=== PATIENT | male | born 1965 | race Caucasian/White ===

== ENCOUNTER 2019-12-26 13:00 | Observation (INO) | payer BC, SELFPAY ==
[2019-12-26] VITALS (14 sets, daily range): BP systolic 128–161; BP diastolic 69–98; PULSE 97–109; RESP 14–20; TEMP 36.4–37.9; O2SAT 94–98; BMI 41.7
--- NOTE | ~2019-12-26 | US_ITS ---
EXAMINATION: US venous doppler [facility] DATE: 12/27/2019 11:58 INDICATION: Chest pain. TECHNIQUE: Grayscale ultrasound images without and with compression and Doppler ultrasound images of the bilateral lower extremity veins were obtained. COMPARISON: None. FINDINGS: The visualized portions of right common femoral vein, profunda (deep) femoral vein, femoral vein, pop liteal vein, peroneal veins, posterior tibial veins, and greater saphenous vein outflow are patent. The visualized portions of left common femoral vein, profunda femoral vein, femoral vein, popliteal v ein, peroneal veins, posterior tibial veins, and greater saphenous vein outflow are patent. IMPRESSION: 1. No deep venous thrombosis. Reviewed, dictated and finalized at location A.
--- NOTE | ~2019-12-26 | CT_ITS ---
EXAMINATION: CTA chest PE protocol DATE: 12/26/2019 15:06 CDT INDICATION: Fever, pleuritic chest pain and cough TECHNIQUE: Computed tomographic angiography (CTA) of the chest was performed with 100 mL Omnipaque-35 0 intravenous contrast. The dose-length product was 985.86 mGy-cm. Maximum intensity projection 3D-re constructions of the aorta and other arteries were constructed by the technologist on a separate work station. COMPARISON: None. FINDINGS: Study is technically adequate. There is pulmonary embolism involving the right upper and bi lateral lower lobe segmental and subsegmental pulmonary arteries. There is also thrombus in the lingu lar artery. Small right pleural effusion. Heart size normal. No evidence for aortic aneurysm or disse ction. No thoracic lymphadenopathy. Calcified granuloma left lower lobe. Focal airspace disease right lower lobe. There is a 5 mm right lower lobe nodule, image 61. No endobronchial lesions. IMPRESSION: 1. Bilateral pulmonary embolism, moderate thrombus burden. 2: Right lower lobe airspace disease may represent atelectasis, pulmonary infarction or pneumonia. 3: Small right pleural effusion. 4.: 5 mm right lower lobe nodule, likely benign. Twelve-month interval follow-up CT chest recommended . Dr. Spears discussed with Dr. Sophia Lang MD at 12/26/2019 15:08 CDT. Reviewed, dictated and finalized at location A. IMPRESSION: 1. Bilateral pulmonary embolism, moderate thrombus burden. 2: Right lower lobe airspace disease may represent atelectasis, pulmonary infa rction or pneumonia. 3: Small right pleural effusion. 4.: 5 mm right lower lobe nodule, likely benign. Twelve-month interval follow-u p CT chest recommended. Dr. Spears discussed with Dr. Sophia Lang MD at 12/26/2019 15:08 CDT.
--- NOTE | ~2019-12-26 | CT_ITS ---
EXAMINATION: CT BRAIN W/O DATE: 12/26/2019 14:48 INDICATION: Weakness and fever TECHNIQUE: Computed tomography (CT) of the head was performed without intravenous contrast. The dose- length product was 605.33 mGy-cm. The mA was adjusted according to patient size. Iterative reconstruc tion technique was employed. COMPARISON: No prior studies for comparison. FINDINGS: Normal brain parenchymal volume for age. Normal claire-white differentiation. No acute intrac ranial hemorrhage, infarction, mass or mass effect. No ventriculomegaly or midline shift. Midline sagittal images demonstrate a normal corpus callosum, c raniovertebral junction and sella turcica. Basilar cisterns are patent. Paranasal sinuses and mastoids are pneumatized. No depressed skull fractures. IMPRESSION: 1. No acute intracranial abnormality. Reviewed, dictated and finalized at location A.
--- NOTE | 2019-12-26 13:44 | ECG_ITS ---
Measurements Intervals [place] Rate: 111 P: 49 ME: 148 QRS: 22 QRSD: 87 T: 17 QT: 306 QTc: 417 Interpretive Statements SINUS TACHYCARDIA DELAYED PRECORDIAL R/S TRANSITION NONSPECIFIC T-WAVE ABNORMALITY- INFERIOR LEADS BASELINE ARTIFACT- I, III, AVR, AVL ABNORMAL ECG Electronically Signed On 12-26-2019 14:15:40 CDT by Branden To D.O.
--- NOTE | 2019-12-26 13:46 | ED.GENADULT ---
HPI - General Adult General Chief complaint: Weakness Stated complaint: WEAKNESS X 7WKS Time Seen by Provider: 12/26/19 13:08 Source: patient Mode of arrival: ambulatory Limitations: no limitations History of Present Illness HPI narrative: Patient is a 54-year-old male who presents for evaluation of fever, weakness over the past several weeks. Patient states approximately 7 weeks ago, he had right rotator cuff surgery at an outpatient facility, and 3 days after, developed a fever and chills. Patient states he has had intermittent, fevers of 100 Fahrenheit up to 104 Fahrenheit over the past several weeks, although they have somewhat decreased in frequency, typically only occurring once a day. Patient has been able to take Tylenol to decrease the fever, but states he usually returned the next day. He reports a dry cough, and chest pain that is especially worse with coughing. No chest pain at rest, no pressure overlying his chest. He reports his pain is exacerbated by taking a deep breath. He reports sinus congestion and drainage. Patient states he had follow-up with his orthopedic surgeon and a negative joint aspirate of the right shoulder, and had blood work done by his primary care physician which was normal. Patient denies recent travel, exposure to ticks, no urinary symptoms or abdominal pain. No rashes. Patient states he was tested for coronavirus and had a negative test. Patient states he feels weak, fatigues easily, and sought care due to concern system fevers. Related Data Home Medications Medication Instructions Recorded Confirmed levothyroxine 12/26/19 terbinafine HCl mg 12/26/19 Allergies Allergy/AdvReac Type Severity Reaction Status Date / Time No Known Allergies Allergy Mild Verified 12/26/19 13:15 Review of Systems Review of Systems: Narrative: CONSTITUTIONAL: Reports fever, chills and diaphoresis EYES: Denies visual changes, redness, or discharge. ENT: Reports sinus congestion and drainage CARDIOVASCULAR: Reports chest pain with inspiration, denies palpitations or edema RESPIRATORY: Reports cough, denies shortness of breath GASTROINTESTINAL: Denies abdominal pain, nausea, vomiting, or diarrhea. GENITOURINARY: Denies dysuria or hematuria. SKIN: Denies rash or itching. MUSCULOSKELETAL: Denies back pain, joint pain, reports myalgias NEUROLOGIC: Denies headache, numbness, reports feeling weak PMFSH Past Medical History Medical History (Updated 12/26/19 @ 15:17 by Sophia Lang MD) Cervical strain Surgical History Surgical History (Updated 12/26/19 @ 13:49 by Spohia Lang MD) H/O rotator cuff surgery Social History Social History (Updated 12/26/19 @ 13:49 by Sophia Lang MD) Smoking status: Never smoker Alcohol intake: current Substance use: never Gender identity (if verbalized by the patient): Male Exam Narrative: Exam Narrative: GENERAL: Awake, alert, conversant HEAD: Normocephalic, atraumatic. EYES: PERRLA and EOMI. ENT: Nares clear, no rhinorrhea or epistaxis. Mucous membranes moist. NECK: Supple. CHEST: No respiratory distress, breathing even and non labored HEART: Tachycardic rate, sinus rhythm ABDOMEN:Non distended, non tender EXTREMITIES: Normal range of motion. No edema. SKIN: Warm, dry, no rash. NEURO:No focal deficits. Alert and oriented x3 Course Vital Signs Vital signs: Vital Signs Temperature 37.9 C H 12/26/19 13:10 Pulse Rate 109 H 12/26/19 13:10 Respiratory Rate 20 12/26/19 13:10 Blood Pressure 161/98 H 12/26/19 13:10 Pulse Oximetry 98 12/26/19 13:10 Temperature 37.9 C H 12/26/19 13:10 Pulse Rate 109 H 12/26/19 13:10 Respiratory Rate 20 12/26/19 13:10 Blood Pressure 142/77 H 12/26/19 14:31 Pulse Oximetry 97 12/26/19 14:58 Medical Decision Making MDM Narrative Medical decision making narrative: Pt presented for evaluation of intermittent fever, fatigue, and found to also have chest pain on exam that see
[2019-12-26] MEDS: ACETAMINOPHEN 500 MG TABLET 1000 MG PO (13:52)
[2019-12-26] MEDS: SODIUM CHLORIDE 0.9% IV 1,000 ML 999 ML IV CONT (13:52)
[2019-12-26 14:02] LABS: Basophils Absolute Auto 0.1 K/mm3 (0.0-0.1); Basophils Percent Auto 0.6 % (0.2-1.2); Eosinophils Percent Auto 0.5 % (0-4.4); Hematocrit 41.5 % (42.0-52.0); Hemoglobin 13.5 g/dL (14.0-18.0); Immature Granulocyte Absolute 0.03 K/mm3 (0.00-0.031); Immature Granulocyte Percent A 0.4 % (0-0.5); Lymphocytes Absolute Auto 1.38 K/mm3 (0.9-3.2); Lymphocytes Percent Auto 17.7 % (18.3-44.2); Mean Corpuscular HGB Conc 32.5 g/dl (32-36); Mean Corpuscular Volume 92.2 fl (80-100); Mean Platelet Volume 9.1 fl (7.4-10.4); Monocytes Absolute Auto 0.9 K/mm3 (0.1-0.6); Monocytes Percent Auto 10.9 % (2.6-8.5); Neutrophils Absolute Auto 5.4 K/mm3 (1.3-6.7); Neutrophils Percent Auto 69.9 % (45.5-73.1); Platelet Count Result 327 k/mm3 (150-375); Red Cell Distribution Width 14.2 % (11.5-14.5); White Blood Count 7.8 K/mm3 (4.5-10.0)
[2019-12-26 14:05] LABS: Add Urine Microscopic? YES; Appearance Urine Clear (Clear); Bacteria Urine Trace /hpf; Bilirubin Urine Negative (Negative); Blood Urine Negative (Negative); Color Urine Yellow (Yellow); Glucose Urine UA Negative (Negative); Ketones Urine Trace mg/dL (Negative); Leukocyte Esterase Ur Negative LEU/UL (Negative); Mucus Urine Few /lpf; Nitrate Urine Negative (Negative); Protein Urine 1+ mg/dL (Negative); RBC Urine 0-2 /hpf (0-2); Specific Grav Ur 1.023 (1.001-1.035)
[2019-12-26 14:13] LABS: INR 1.2; Lactic Acid Reflex 1.7 mmol/L (0.7-2.1); Prothrombin Time 14.8 Seconds (11.1-14.7)
[2019-12-26 14:14] LABS: Partial Thromboplastin Time 31.6 SECONDS (22.3-36.8)
[2019-12-26 14:22] LABS: Lactate Dehydrogenase 498 U/L (313-618); NT Pro B Type Natriuretic Pept 30 PG/ML (5-100)
[2019-12-26 14:24] LABS: Troponin I < 0.012 ng/mL (0.000-0.034)
[2019-12-26 14:33] LABS: Erythrocyte Sedimentation Rate 54 mm/hr (0-20)
[2019-12-26 14:38] LABS: Estimated CRCL calculation 87 ml/min; Estimated Glomerular Filt Rate > 60
[2019-12-26 14:53] LABS: Monoscreen Negative (Negative); Negative Monotest Control Negative (Negative); Positive Monotest Control Positive (Positive)
[2019-12-26] MEDS: HEPARIN SODIUM 5,000 UNITS/ML VIAL 7500 UNITS IV PUSH (16:05)
[2019-12-26] MEDS: HEPARIN SOD/D5W 100 UNITS/ML 25,000 UNITS/250 ML BAG 15 UNITS IV CONT (16:06)
--- NOTE | 2019-12-26 16:45 | PM.IMHP ---
H&P: HPI History of Present Illness Chief complaint: Cough and weakness. Narrative: Freddie ?Dilip Alfaro is a 54-year-old male with hypothyroidism who presented to the emergency department earlier this afternoon from home for evaluation of cough and weakness. It is somewhat difficult to follow the history that he gives me, and despite repeated clarification, he continues to have contraindications in his time lines. From what I can gather, he had a right rotator cuff repair done on November 09, 2019 in [place] and three days thereafter he began having chills, shakes, and a fever. Reportedly he had a fever 12 hours a day for 3 straight weeks, with a Tmax of 104? as well as diffuse myalgias and arthralgias. He had no other symptoms which would point to a specific etiology, and thus his right shoulder was aspirated given his recent surgery, and that reportedly yielded nothing. He was tested for COVID-19 on November 19 and that was negative. For unclear reasons, he was prescribed a Z-Bro around this time which he completed and he denies benefit from taking that. During those 3 weeks, he admits that he was ?curled up in bed? a majority of the day and had a very poor appetite. I lost a lot of muscle mass and some weight during that time. After 3 weeks, his temperature become less frequent with only a low-grade fever last week and he has not needed to take Tylenol for nearly 1 weeks time. About 5 days ago he developed a cough productive of clear phlegm, and it sounds as though he has severe coughing jags to the point where he has posttussive emesis. He has since been having right anterior/lateral pleuritic chest pain, which he initially blamed on the coughing and a muscle strain. He got the okay to return back to work today, and he tells me that working these past 2 days has just worn him out and he is feeling very weak. Due to reports of pleuritic pain, a CTA of the chest was performed which showed bilateral pulmonary embolism with moderate thrombus burden. He has no history of pulmonary embolism or DVT. He denies recent travel, lower extremity swelling, and calf pain. He does work a desk job, and as mentioned above, he does admit to spending 3 weeks in bed recently due to fevers as detailed above. again, he has not had a fever for over 1 week. He denies headache. No exertional pain, orthopnea, or paroxysmal nocturnal dyspnea. Interestingly, he denies shortness of breath. He has no known history of cancer. Review of Systems Review of Systems: Narrative: Twelve systems were reviewed with pertinent positives and negatives as per HPI. Except as documented, all other systems were reviewed and are negative. [facility] Past Medical History Medical History (Updated 12/26/19 @ 21:03 by Tonya Guerra PA-C) Cervical strain Colon polyps Hypothyroidism Surgical History Surgical History (Updated 12/26/19 @ 21:03 by Tonya Guerra PA-C) History of repair of right rotator cuff (~10/2019) History of tonsillectomy Family History Family History (Updated 12/26/19 @ 21:04 by Tonya Guerra PA-C) Mother Venous thromboembolism Father Carcinoma of colon Grandparent Carcinoma of colon Social History Social History (Updated 12/26/19 @ 21:05 by Tonya Guerra PA-C) Social History: Patient lives in [place] with his . They have 1 son. 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 He designates his , Whit, is his surrogate decision maker and he wishes to be a full code. Spiritual care concerns: No Meds Home Medications and Allergies Home Medications Medication Instructions Recorded Confirmed Type levothyroxine 25 mcg PO QAM 12/26/19 12/26/19 History Allergies Allergy/AdvReac Type Severity Reaction Status Date / Time No Known Allergies Allergy Mild Verified 12/26/19 13:15 Vital Signs Vital Signs - 24 hr 12/26/19 13:10 12/26/19 13:17 12/26/19
--- NOTE | 2019-12-26 17:05 | PC.NURSE ---
This patient, Freddie Alfaro, was admitted to Medical Room 341-01. Patient/family oriented to hospital policies and general routines including ID bracelet, bed and alarms, visiting hours, pain management, procedures, bathroom and other care routines, personal items, smoking policy, room service/diet, and visiting hours. Valuables list has been completed. Information on how to activate the Rapid Response Team has been discussed. Patient/Family are encouraged to report perceived risks to care and to ask questions if they do not understand what they are told or what they should do.
[2019-12-26 22:24] LABS: Partial Thromboplastin Time 110.8 SECONDS (22.3-36.8)
[2019-12-26 22:24] LABS: Alanine Aminotransferase 32 U/L (4-50); Albumin Level 3.7 g/dL (3.5-5.1); Alkaline Phosphatase 98 U/L (38-126); Aspartate Amino Transferase 31 U/L (17-59); Blood Urea Nitrogen 11 mg/dL (9-20); Calcium 8.6 mg/dL (8.4-10.2); Carbon Dioxide 27 mmol/L (22-30); Chloride 103 mmol/L (98-107); Estimated CRCL calculation 94 ml/min; Estimated Glomerular Filt Rate > 60; Glucose 125 mg/dL (75-110); Potassium 3.6 mmol/L (3.4-5.0); Sodium 136 mmol/L (137-145)
[2019-12-27] VITALS: PULSE 93
[2019-12-27 04:06] VITALS: PULSE 97
[2019-12-27 04:51] VITALS: BP 141/77; PULSE 94; RESP 18; TEMP 37.1; O2SAT 96
[2019-12-27 05:32] LABS: Basophils Percent Auto 0.7 % (0.2-1.2); Eosinophils Absolute Auto 0.1 K/mm3 (0-0.3); Eosinophils Percent Auto 1.3 % (0-4.4); Hematocrit 37.2 % (42.0-52.0); Hemoglobin 12.1 g/dL (14.0-18.0); Immature Granulocyte Absolute 0.02 K/mm3 (0.00-0.031); Immature Granulocyte Percent A 0.4 % (0-0.5); Lymphocytes Absolute Auto 1.51 K/mm3 (0.9-3.2); Mean Corpuscular HGB Conc 32.5 g/dl (32-36); Mean Corpuscular Hemoglobin 29.5 pg (26-34); Mean Corpuscular Volume 90.7 fl (80-100); Mean Platelet Volume 9.1 fl (7.4-10.4); Monocytes Absolute Auto 0.7 K/mm3 (0.1-0.6); Neutrophils Absolute Auto 3.1 K/mm3 (1.3-6.7); Neutrophils Percent Auto 57.6 % (45.5-73.1); Platelet Count Result 269 k/mm3 (150-375); Red Cell Distribution Width 14.1 % (11.5-14.5); White Blood Count 5.4 K/mm3 (4.5-10.0)
[2019-12-27 05:34] LABS: Blood Urea Nitrogen 11 mg/dL (9-20); Calcium 8.7 mg/dL (8.4-10.2); Carbon Dioxide 24 mmol/L (22-30); Chloride 102 mmol/L (98-107); Estimated CRCL calculation 94 ml/min; Estimated Glomerular Filt Rate > 60; Glucose 107 mg/dL (75-110); Potassium 3.8 mmol/L (3.4-5.0); Sodium 134 mmol/L (137-145)
[2019-12-27 05:40] LABS: Partial Thromboplastin Time 76.1 SECONDS (22.3-36.8)
[2019-12-27] MEDS: LEVOTHYROXINE SODIUM 25 MCG TABLET PO (06:43)
[2019-12-27 08:00] VITALS: PULSE 100
[2019-12-27 08:21] LABS: Total Triiodothyronine (T3) 1.01 NG/ML (0.97-1.69)
--- NOTE | 2019-12-27 10:51 | PM.IMPN ---
Progress Note: A&P Assessment and Plan (1) Bilateral pulmonary embolism: Code(s): I26.99 - Other pulmonary embolism without acute cor pulmonale Status: Acute Assessment and Plan: Chest CTA shows bilateral pulmonary embolism with moderate clot burden. This is likely due to a DVT which was probably provoked by his prolonged period of immobility as he was in bed for 3 weeks. He reports he had a colonoscopy within the past year with two polyps which were removed. He is a non-smoker. Heparin gtt was initiated. Care coordination is on board and eliquis is covered by his insurance. Await venous doppler US to r/o DVT Await echo Continue heparin gtt and transition to eliquis this evening Continue to monitor (2) Right lower lobe pulmonary infiltrate: Code(s): R91.8 - Other nonspecific abnormal finding of lung field Status: Acute Assessment and Plan: Right lower lobe airspace disease was noted on CTA which could include atelectasis, pulmonary infarction, or pneumonia. This may be secondary to pulmonary infarction due to his PE as he is having right sided pleuritic discomfort. Additionally, he may very well have had pneumonia given reported 3 weeks of fever, however those have since resolved and thus antibiotics are not indicated at this time. Continue to monitor and treat PE as above (3) Hypothyroidism: Qualifiers: Hypothyroidism type: unspecified Qualified Code(s): E03.9 - Hypothyroidism, unspecified Code(s): E03.9 - Hypothyroidism, unspecified Status: Acute Assessment and Plan: TSH is elevated at 6.290 but free T4 is 1.00 and total T3 1.01 suggesting subclinical hypothyroidism. Continue levothyroxine (4) Right lower lobe pulmonary nodule: Code(s): R91.1 - Solitary pulmonary nodule Status: Acute Assessment and Plan: Chest CTA revealed a 5 millimeter right lower lobe nodule. He will need a twelve month interval follow-up CT of the chest outpatient per his PCP Time Spent With Patient Time with patient: 15 - 25 minutes Subjective Date/time seen: 12/27/19 10:51 Interval history: Mr. Alfaro is seen and examined at bedside. He reports that he continues to have persistent, although less frequent, cough with clear sputum. He denies associated sinus pressure and runny nose. He reports that his pleuritic discomfort has improved significantly. He denies dyspnea and chest pain. He denies palpitations. He denies nausea, vomiting, and abdominal pain. He denies any further subjective fevers or chills. He reports that he is tolerating PO intake well. He has no concerns regarding voiding. He denies headache, dizziness, and lightheadedness. Review of Systems Review of Systems: All systems reviewed & are unremarkable except as noted in HPI and below Exam Narrative: Exam Narrative: General: Well-developed and well-nourished 54 y.o. male who is pleasant, cooperative, and in no acute distress. He is non-toxic in appearance. HEENT: Normocephalic and atraumatic. Conjunctivae and lids normal. PERRL. EOMI. Left ear canal with cerumen and right ear canal with clear TM. Mucous membranes are moist. Posterior pharynx without erythema or purulence. Neck: Supple without lymphadenopathy or masses. Cardiac: Regular rate and rhythm. S1 and S2 normal. No murmur appreciated. No carotid bruits. Lungs:Effort normal. Lungs are clear to auscultation bilaterally and breath sounds are decreased on the right lower lobe. Abdomen: Bowel sounds normoactive. Abdomen is soft, non-distended, and non-tender. Extremities: No lower extremity edema bilaterally. Estella sign negative. Palpable DP and PT bilaterally. Neurological: Alert. No focal neurological deficits noted. Speech is clear. Skin: Warm and dry. Psychiatric: Judgment and insight intact. Mood pleasant and affect normal. Objective Data Vital Signs Vital Signs: Vital Signs - 24 hr 12/26/19 13:10
[2019-12-27] MEDS: HEPARIN SOD/D5W 100 UNITS/ML 25,000 UNITS/250 ML BAG 13 UNITS IV CONT (10:55)
[2019-12-27 12:00] VITALS: PULSE 100
[2019-12-27 12:08] VITALS: BMI 41.7
[2019-12-27 12:30] LABS: Partial Thromboplastin Time 51.1 SECONDS (22.3-36.8)
[2019-12-27] MEDS: HEPARIN SODIUM 5,000 UNITS/ML VIAL 7500 UNITS IV PUSH (12:34)
[2019-12-27 14:00] VITALS: BP 152/90; PULSE 100; RESP 18; TEMP 36.6; O2SAT 99
--- NOTE | 2019-12-27 15:14 | PM.DS ---
DS: Admitting Diagnosis Admitting Diagnosis Admitting Diagnosis: Other pulmonary embolism without acute cor pulmonale DS: Discharge Diagnosis Discharge Diagnosis (1) Bilateral pulmonary embolism: Code(s): I26.99 - Other pulmonary embolism without acute cor pulmonale Status: Acute (2) Right lower lobe pulmonary infiltrate: Code(s): R91.8 - Other nonspecific abnormal finding of lung field Status: Acute (3) Hypothyroidism: Qualifiers: Hypothyroidism type: unspecified Qualified Code(s): E03.9 - Hypothyroidism, unspecified Code(s): E03.9 - Hypothyroidism, unspecified Status: Chronic (4) Right lower lobe pulmonary nodule: Code(s): R91.1 - Solitary pulmonary nodule Status: Acute DS: Summary Hospital Course Reason for hospitalization: Cough, pleuritic pain, weakness Hospital Course: Mr. Alfaro is a 54 y.o. male with PMH significant for hypothyroidism who presented to the ED with a c/o weakness, cough, and pleuritic chest pain. He reported that he had a right rotator cuff repair 10/2019. Subsequently, he developed fevers, myalgias, arthralgias, and weakness and was in bed for most of that time. He reports that a source of infection was never identified. He reports that his orthopedist attempted right shoulder aspiration which yielded nothing and his COVID testing was negative. He completed a course of azithromycin with no improvement. He reports that his fever became less frequent and he had not taken tylenol since. He reported cough with clear sputum. He also reported right sided pleuritic pain. Initial workup in the ED revealed WBC 7,800, Hb 13.5, Hct 41.5, platelets 327, sodium 136, Cr 1.1, BUN 11, LFT unremarkable, troponin <0.012. CTA chest was performed which revealed bilateral pulmonary embolism with moderate clot burden. Heparin gtt was initiated. Right lower lobe airspace disease was noted on CTA which could include atelectasis, pulmonary infarction, or pneumonia. This is likely secondary to pulmonary infarction due to his PE as he is having right sided pleuritic discomfort. He was admitted to the hospitalist service for further evaluation and management. He was transitioned to eliquis this afternoon. Venous dopplers were negative for DVT but it is possible that he had a DVT which mobilized and was provoked but his period of immobility. He reports that he is up to date on his screening colonoscopy and had no prior hx of venous thromboembolism. Echo revealed normal systolic function, estimated at 60-65%, with no evidence of pulmonary hypertension. Telemetry was reviewed and revealed sinus rhythm with occasional sinus tachycardia. TSH was elevated at 6.290 but free T4 is 1.00 and total T3 1.01 suggesting subclinical hypothyroidism. Chest CTA revealed a 5 millimeter right lower lobe nodule and he will need a twelve month interval follow-up CT of the chest outpatient per his PCP which I discussed with the patient. He had a temperature of 100.2F at presentation and remained afebrile. He requested to go home and was discharged in stable condition on the afternoon of 12/27/2019. He was instructed to follow-up with his PCP for further refills of eliquis and for a post-op follow-up. Status at Discharge Functional status at discharge: independent ambulation Overall status at discharge: patient is back to baseline Time Spent with Patient Time attestation: Total time spent providing and/or coordinating discharge services: 40 minutes Exam Narrative: Exam Narrative: Vitals at admission: Temp Pulse Resp BP Pulse Ox 100.2 F H 109 H 20 161/98 H 98 12/26/19 13:10 12/26/19 13:10 12/26/19 13:10 12/26/19 13:10 12/26/19 13:10 Vitals at discharge: Temp Pulse Resp BP Pulse Ox 97.9 F 100
[2019-12-27] MEDS: APIXABAN 5 MG TABLET 10 MG PO (15:56)
--- NOTE | 2019-12-27 21:11 | ECHO_ITS ---
Patient Info Name: Freddie Alfaro Age: 54 years : 1965 Gender: Male Ht: 68 in Wt: 274 lbs BSA: 2.50 m2 HR: 81 bpm BP: 141 / 77 mmHg Heart Rhythm: Sinus Rhythm Technical Quality: Good Exam Date: 12/27/2019 11:07 AM Exam Location: [facility] Card Pulmonary Patient Status: Inpatient Admit Date: 12/26/2019 Staff Ordering Physician: Tonya Guerra PA-C Piercing Artist: Medardo Carr RDCS Attending Provider: Mckayla Escobar PA-C Referring Physician: Mari PETERS; Exam Type: CA echo doppler color flow Study Info Indications I26.99 - Other pulmonary embolism without acute cor pulmonale Complete two-dimensional, color flow and Doppler transthoracic echocardiogram is performed. History/Risk Factors Bilateral PE w/ moderate clot burden. Summary 1. Left ventricular chamber dimension is normal. 2. Left ventricular systolic function is normal, estimated at 60-65%. 3. There is mildly increased left ventricular wall thickness. 4. The left ventricular diastolic function is normal. 5. E/e' 6 is not elevated. 6. No pulmonary hypertension, estimated pulmonary arterial systolic pressure is 32 mmHg. Left Ventricle E/e' 6 is not elevated. Left ventricular chamber dimension is normal. Left ventricular systolic function is normal, estimated at 60-65%. There is mildly increased left ventricular wall thickness. The left ventricular diastolic function is normal. Right Ventricle Right ventricular chamber dimension is normal. Right ventricular systolic function is normal. Left Atria Left atrial chamber dimension is normal. Right Atria Right atrial chamber dimension is normal. Aortic Valve The aortic valve is trileaflet. There is no aortic valve stenosis. There is no aortic valve regurgitation. Pulmonic Valve There is no pulmonic regurgitation. Mitral Valve There is no mitral valve stenosis. There is no mitral valve regurgitation. Tricuspid Valve There is no tricuspid valve regurgitation. No pulmonary hypertension, estimated pulmonary arterial systolic pressure is 32 mmHg. Pericardium/Pleural There is no pericardial effusion. Inferior Vena Cava Normal inferior vena cava with >50% collapse upon inspiration consistent with normal right atrial pressure, 5 mmHg. Aorta The aortic root size at the sinus of Valsalva is normal. Left Ventricular Outflow Tract Name Value Normal LVOT 2D LVOT Diameter 2.2 cm LVOT Doppler LVOT Peak Gradient 4 mmHg LVOT Mean Gradient 2 mmHg LVOT VTI 18 cm LVOT VTI/AV VTI Ratio 0.8 LVOT Stroke Volume 67 ml LVOT CO 5.7 l/min LVOT CI 2.3 l/min/m2 Mitral Valve Name Value Normal MV Doppler
== END 2019-12-27 16:00 | disposition home or self-care (01) ==
LOC: ANHED 15:43 → ANH3MED 15:52
PROVIDERS: Internal Medicine; Physician Assistant; Admitting Provider Internal Medicine; Emergency Provider Emergency Medicine; Visit Provider Family Medicine
DX: I26.99 Other pulmonary embolism without acute cor pulmonale (principal); R91.1 Solitary pulmonary nodule; R91.8 Other nonspecific abnormal finding of lung field; E03.9 Hypothyroidism, unspecified; Z86.010 Personal history of colon polyps; Z98.890 Other specified postprocedural states
CPT/HCPCS: 36415; 70450; 71275; 80048; 80053; 81001; 82728; 83605; 83615; 83880; 84439; 84443; 84480; 84484; 85025; 85610; 85652; 85730; 86140; 86308; 87040; 93005; 93306; 93970; 96361; 96365; 96366; 99291; A9270; G0378; J1644; J7030; Q9967

== ENCOUNTER 2021-03-08 09:24 | Emergency (ER) | payer BC, SELFPAY ==
--- NOTE | ~2021-03-08 | XR_ITS ---
EXAMINATION: XR chest 2V DATE: 03/08/2021 12:18 INDICATION: Chest pressure TECHNIQUE: PA and lateral views of the chest are obtained. COMPARISON: None available FINDINGS: The lungs are free of acute opacities. There is no pleural effusion or pneumothorax. The ca rdiomediastinal silhouette is normal. The visualized bones and soft tissues are unremarkable. IMPRESSION: 1. No acute cardiopulmonary abnormality. Reviewed, dictated and finalized at location A.
[2021-03-08 09:39] VITALS: BP 154/83; PULSE 87; RESP 20; TEMP 36.7; O2SAT 99
[2021-03-08 10:03] LABS: Basophils Absolute Auto 0.1 K/mm3 (0.0-0.1); Eosinophils Absolute Auto 0.1 K/mm3 (0-0.3); Eosinophils Percent Auto 1.9 % (0-4.4); Hematocrit 49.3 % (42.0-52.0); Immature Granulocyte Absolute 0.01 K/mm3 (0.00-0.031); Immature Granulocyte Percent A 0.2 % (0-0.5); Lymphocytes Absolute Auto 1.58 K/mm3 (0.9-3.2); Lymphocytes Percent Auto 30.4 % (18.3-44.2); Mean Corpuscular HGB Conc 32.5 g/dl (32-36); Mean Corpuscular Volume 92.5 fl (80-100); Mean Platelet Volume 9.1 fl (7.4-10.4); Monocytes Absolute Auto 0.5 K/mm3 (0.1-0.6); Neutrophils Percent Auto 57.5 % (45.5-73.1); Platelet Count Result 213 k/mm3 (150-375); Red Blood Count 5.33 M/mm3 (4.6-6.20); White Blood Count 5.2 K/mm3 (4.5-10.0)
[2021-03-08 10:04] LABS: Add Urine Microscopic? NO; Appearance Urine Clear (Clear); Bilirubin Urine Negative (Negative); Blood Urine Negative (Negative); Color Urine Colorless (Yellow); Glucose Urine UA Negative (Negative); Ketones Urine Negative (Negative); Leukocyte Esterase Ur Negative LEU/UL (Negative); Nitrate Urine Negative (Negative); Protein Urine Negative (Negative); Urobilinogen Urine Negative mg/dL (<2.0)
[2021-03-08 10:12] LABS: Specific Grav Ur 1.002 (1.001-1.035)
[2021-03-08 10:13] LABS: Alanine Aminotransferase 38 U/L (4-50); Albumin Level 4.4 g/dL (3.5-5.1); Alkaline Phosphatase 81 U/L (38-126); Anion Gap 7 mmol/L (8-16); Aspartate Amino Transferase 36 U/L (17-59); Blood Urea Nitrogen 12 mg/dL (9-20); Calcium 9.7 mg/dL (8.4-10.2); Carbon Dioxide 28 mmol/L (22-30); Chloride 107 mmol/L (98-107); Estimated CRCL calculation 74 ml/min; Estimated Glomerular Filt Rate 57; Glucose 112 mg/dL (65-110); Lipase 132 U/L (23-300); Potassium 4.6 mmol/L (3.4-5.0); Sodium 142 mmol/L (137-145)
[2021-03-08 10:54] VITALS: O2SAT 96
[2021-03-08 11:00] VITALS: O2SAT 96
[2021-03-08 11:02] VITALS: BP 144/81; PULSE 77; O2SAT 98
--- NOTE | 2021-03-08 12:05 | ED.GENADULT ---
HPI - General Adult General Chief complaint: Abdominal Pain Stated complaint: HTN, abd bloating Time Seen by Provider: 03/08/21 11:11 Source: patient Mode of arrival: ambulatory Limitations: no limitations History of Present Illness HPI narrative: Patient presents for evaluation of elevated blood pressure readings. He states he underwent repair of right torn rotator cuff in October of last year. Prior to that time he is having blood pressure readings of 120s over 70s. Following his surgery his readings have been in 130s to 140s systolically. Last summer he was experiencing fevers on a daily basis. He came here for further evaluation after 6 months of symptoms. 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 He completed 6 months of therapy per his reports. Establish care with a new primary care provider and they offer to start him on a low-dose antihypertensive. He declined and elected to attempt to reduce his blood pressure readings through lifestyle modifications. Recently has blood pressure has been in the 150s systolically. He has some chronic problems with abdominal distension 2/2 gas. He states this morning he felt like he had increased gas production. He checked his blood pressure and states systolic pressure was in 150's. He states that his blood pressure concerned him so he came here for further evaluation. He denies any shortness of breath or cough. He has some pressure in his chest 2/2 gas but denies any chest pain per se. He thinks that his blood pressure elevation may be 2/2 chronic pain in bilateral shoulders. Related Data Home Medications Medication Instructions Recorded Confirmed levothyroxine 25 mcg PO QAM 12/26/19 03/08/21 Allergies Allergy/AdvReac Type Severity Reaction Status Date / Time No Known Allergies Allergy Mild Verified 03/08/21 10:40 Review of Systems Review of Systems: CONSTITUTIONAL: Denies fever, chills, or sweats. EYES: Denies visual changes, redness, or discharge. ENT: Denies rhinorrhea, congestion, sore throat, or otalgia. CARDIOVASCULAR: Denies chest pain, palpitations, or edema. RESPIRATORY: Denies cough or dyspnea. GASTROINTESTINAL: Reports abdominal distension and gas production. Denies nausea, vomiting, or diarrhea. GENITOURINARY: Denies dysuria or hematuria. SKIN: Denies rash or itching. MUSCULOSKELETAL: Denies back pain, joint pain, or myalgia. NEUROLOGIC: Denies headache, numbness, dizziness, or weakness. PSYCHIATRIC: Denies anxiety or depression. [facility] Past Medical History Medical History Cervical strain Colon polyps Hypothyroidism Surgical History Surgical History History of repair of right rotator cuff (~10/2019) History of tonsillectomy Family History Family History Mother Venous thromboembolism Father Carcinoma of colon Grandparent Carcinoma of colon Social History Social History Social History: Patient lives in [place] with his . They have 1 son. 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 He designates his , Whit, is his surrogate decision maker and he wishes to be a full code. Spiritual care concerns: No Exam Narrative: GENERAL: Well-appearing, well-nourished, and in no acute distress. HEAD: Normocephalic, atraumatic. EYES: PERRLA and EOMI. ENT: Nares clear, no rhinorrhea or epistaxis. Mucous membranes moist. Oropharynx without tonsillar hypertrophy exudate or other lesions. Bilateral TMs pearly claire nonbulging NECK: Supple. No adenopathy or masses. No carotid bruits or JVD CHEST: Clear to auscultation. No respiratory distress. No wheezes rales or rhonchi HEART: Regular rate and rhythm. No murmur heard. Normal peripheral pulses.
--- NOTE | 2021-03-08 12:07 | ECG_ITS ---
Rate 65 IN 160 QRSd 90 QT 380 QTc 396 --[place]-- P 0 QRS 2 T 2 SINUS RHYTHM BORDERLINE R WAVE PROGRESSION, ANTERIOR LEADS BORDERLINE T WAVE ABNORMALITY- INFERIOR LEADS BORDERLINE ECG Electronically Signed On 03-08-2021 20:01:33 CDT by Branden MENDOSA
[2021-03-08 12:30] LABS: Prothrombin Time 12.9 Seconds (11.1-14.7)
[2021-03-08 12:31] LABS: Partial Thromboplastin Time 26.7 SECONDS (22.3-36.8)
[2021-03-08 12:34] LABS: D Dimer 0.31 ug/mL (<0.48)
[2021-03-08 12:43] LABS: Troponin I 0.025 ng/mL (0.000-0.034)
[2021-03-08 13:27] LABS: Troponin I 0.023 ng/mL (0.000-0.034)
[2021-03-08 13:39] VITALS: BP 157/89; PULSE 87; RESP 16; O2SAT 98
== END 2021-03-08 14:18 | disposition home or self-care (01) ==
PROVIDERS: Emergency Medicine; Emergency Provider Nurse Practitioner
DX: I10 Essential (primary) hypertension (principal); Z86.711 Personal history of pulmonary embolism; Z86.010 Personal history of colon polyps; E03.9 Hypothyroidism, unspecified; R94.31 Abnormal electrocardiogram [ECG] [EKG]
CPT/HCPCS: 36415; 71046; 80053; 81003; 83690; 84484; 85025; 85380; 85610; 85730; 93005; 99284

== ENCOUNTER 2021-12-31 16:44 | Emergency (ER) | payer BC, SELFPAY ==
--- NOTE | ~2021-12-31 | XR_ITS ---
XR chest 2V DATE: 12/31/2021 17:27 INDICATION: Left-sided chest pain radiating to left arm TECHNIQUE: PA and lateral views COMPARISON: 03/08/2021 PA and lateral chest FINDINGS: Normal heart size. No hilar or mediastinal enlargement. No pulmonary infiltrate or consolid ation, pleural effusion or pulmonary vascular congestion or pneumothorax. There is mild dextroscoliosis and degenerative spurring of the thoracic spine. IMPRESSION: No active cardiopulmonary disease Reviewed, dictated and finalized at location A.
[2021-12-31 16:46] VITALS: BP 195/95; PULSE 75; RESP 18; TEMP 36.7; O2SAT 100
--- NOTE | 2021-12-31 16:50 | ECG_ITS ---
Measurements Intervals [place] Rate: 72 P: 17 GA: 156 QRS: 16 QRSD: 97 T: 29 QT: 368 QTc: 405 Interpretive Statements SINUS RHYTHM COMPARED TO ECG 03/08/2021 13:35:51 NO SIGNIFICANT CHANGES Electronically Signed On 12-31-2021 22:19:29 CDT by Thao Pinto M.D.
[2021-12-31 17:09] LABS: Basophils Absolute Auto 0.1 K/mm3 (0.0-0.1); Basophils Percent Auto 1.1 % (0.2-1.2); Eosinophils Absolute Auto 0.1 K/mm3 (0-0.3); Eosinophils Percent Auto 1.1 % (0-4.4); Hematocrit 47.4 % (42.0-52.0); Hemoglobin 16.2 g/dL (14.0-18.0); Immature Granulocyte Absolute 0.01 K/mm3 (0.00-0.031); Immature Granulocyte Percent A 0.1 % (0-0.5); Lymphocytes Absolute Auto 1.95 K/mm3 (0.9-3.2); Mean Corpuscular HGB Conc 34.2 g/dl (32-36); Mean Corpuscular Hemoglobin 30.9 pg (26-34); Mean Corpuscular Volume 90.5 fl (80-100); Mean Platelet Volume 9.6 fl (7.4-10.4); Monocytes Absolute Auto 0.5 K/mm3 (0.1-0.6); Monocytes Percent Auto 7.2 % (2.6-8.5); Neutrophils Absolute Auto 4.6 K/mm3 (1.3-6.7); Neutrophils Percent Auto 63.5 % (45.5-73.1); Platelet Count Result 235 k/mm3 (150-375); Red Blood Count 5.24 M/mm3 (4.6-6.20); Red Cell Distribution Width 14.1 % (11.5-14.5); White Blood Count 7.2 K/mm3 (4.5-10.0)
[2021-12-31 17:16] VITALS: BP 150/82; PULSE 76; RESP 19; O2SAT 98
[2021-12-31 17:21] LABS: INR 1.1; Prothrombin Time 13.6 Seconds (11.1-14.7)
[2021-12-31 17:22] LABS: Partial Thromboplastin Time 26.9 SECONDS (22.3-36.8)
[2021-12-31 17:58] LABS: Alanine Aminotransferase 28 U/L (6-50); Albumin Level 4.6 g/dL (3.5-5.1); Alkaline Phosphatase 77 U/L (38-126); Anion Gap 7 mmol/L (8-16); Aspartate Amino Transferase 28 U/L (17-59); Bilirubin,Total 0.9 mg/dL (0.2-1.3); Blood Urea Nitrogen 14 mg/dL (9-20); Calcium 8.7 mg/dL (8.4-10.2); Carbon Dioxide 26 mmol/L (22-30); Chloride 105 mmol/L (98-107); Estimated CRCL calculation 79 ml/min; Estimated Glomerular Filt Rate > 60; Glucose 109 mg/dL (65-110); Lipase 121 U/L (23-300); Sodium 138 mmol/L (137-145)
[2021-12-31 18:09] LABS: Troponin I 0.018 ng/mL (0.000-0.034)
[2021-12-31 18:10] VITALS: BP 145/88; PULSE 77; RESP 22; O2SAT 97
[2021-12-31] MEDS: ACETAMINOPHEN 500 MG TABLET 1000 MG PO (18:10)
[2021-12-31 18:11] LABS: Appearance Urine Clear (Clear); Bilirubin Urine Negative (Negative); Blood Urine Negative (Negative); Color Urine Yellow (Yellow); Glucose Urine UA Negative (Negative); Ketones Urine Negative (Negative); Leukocyte Esterase Ur Negative LEU/UL (Negative); Nitrate Urine Negative (Negative); Protein Urine Negative (Negative); Urobilinogen Urine 0.2 mg/dL (<2.0)
[2021-12-31 18:24] LABS: Add Urine Microscopic? NO
--- NOTE | 2021-12-31 18:24 | ED.GENADULT ---
HPI - General Adult General Chief complaint: Headache Stated complaint: HTN Time Seen by Provider: 12/31/21 17:19 Source: patient and RN notes reviewed Mode of arrival: ambulatory Limitations: no limitations History of Present Illness HPI narrative: This is a 56 year old male with history of thyroid disease and hypertension who presents for evaluation of an elevated blood pressure. PAtient reports he has chronic neck pain that is worse with movement and position. He states last night his neck pain seemed worse with laying down. He also noticed frontal head pain and pressure today. He became concerned because his blood pressure was evaluated at home. He states his blood pressure was systolic 180s and 190s. He has been told before he may have hypertension. His doctor was starting him on lisinopril but his pharmacist told him about side effects so he did not start. His states headache is mild and rates 3/10. HE denies associated nausea, vomiting, blurred vision, or focal deficits. He reported intermittent left chest pain that he attributes to gas. He states he has felt tire today because he fell asleep last night without of CPAP machine. He woke up frazzled with racing heart and he has been tired since. Her reports diagnosis of PE a couple years ago due to being sedentary after surgery. HE denies signs of DVT. He is no longer on anticoagulation. Related Data Home Medications Medication Instructions Recorded Confirmed levothyroxine 25 mcg tablet 25 mcg PO QAM 12/26/19 03/08/21 Allergies Allergy/AdvReac Type Severity Reaction Status Date / Time No Known Allergies Allergy Mild Verified 03/08/21 10:40 Review of Systems Review of Systems: All systems reviewed & are unremarkable except as noted in HPI and below Constitutional: Constitutional: Denies chills and Reports fatigue Eyes: Eyes: Denies change in vision and Denies photophobia Cardiovascular: Cardiovascular: Reports chest pain, Denies rapid heart rate and Denies slow heart rate Respiratory: Respiratory: Denies chest congestion, Denies cough and Denies dyspnea Gastrointestinal: Gastrointestinal: Denies abdominal pain, Reports bloating and Denies constipation Neurologic: Denies syncope, Reports headache(s), Denies focal weakness and Denies numbness PMFSH Past Medical History Medical History Cervical strain Colon polyps Hypothyroidism Surgical History Surgical History History of repair of right rotator cuff (~10/2019) History of tonsillectomy Family History Family History Mother Venous thromboembolism Father Carcinoma of colon Grandparent Carcinoma of colon Social History Social History Social History: Patient lives in [place] with his . They have 1 son. 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 He designates his , Whit, is his surrogate decision maker and he wishes to be a full code. Spiritual care concerns: No Exam Const: General: no acute distress and alert Nutritional Appearance: well nourished Orientation/consciousness: patient oriented x3 HENMT: Head: normal to inspection Face and sinus: normal facial exam Mouth: Yes Normal oral and palatal mucosa present Eyes: Conjunctivae: conjunctivae normal and conjunctival abnormality Pupils: Equal, round and reactive pupils present EOM: EOMs intact bilaterally Neck: Neck: normal visual inspection Chest: Chest palpation & inspection: normal inspection of the chest Resp: Effort & Inspection: normal respiratory effort, not labored and no retractions Auscultation: clear to auscultation bilaterally Cardio: Rate: regular rate Rhythm: regular rhythm Heart sounds: no murmurs
[2021-12-31 18:34] LABS: D Dimer 0.28 ug/mL (<0.48)
[2021-12-31 19:03] VITALS: BP 124/76; PULSE 79; RESP 18; O2SAT 98
[2021-12-31 19:25] VITALS: BP 133/80; PULSE 81; RESP 16; O2SAT 99
[2021-12-31 20:19] LABS: Troponin I 0.021 ng/mL (0.000-0.034)
[2021-12-31 20:56] VITALS: BP 123/78; PULSE 78; RESP 20; O2SAT 98
== END 2021-12-31 21:13 | disposition home or self-care (01) ==
PROVIDERS: Family Medicine; Emergency Provider General Practice
DX: I10 Essential (primary) hypertension (principal); G44.209 Tension-type headache, unspecified, not intractable; R07.9 Chest pain, unspecified; E03.9 Hypothyroidism, unspecified; Z86.010 Personal history of colon polyps
CPT/HCPCS: 36415; 71046; 80053; 81003; 83690; 84484; 85025; 85380; 85610; 85730; 93005; 99284; A9270

== ENCOUNTER 2023-07-04 20:34 | Emergency (ER) | payer BC, SELFPAY ==
--- NOTE | 2023-07-04 20:37 | ECG_ITS ---
Measurements Intervals [place] Rate: 71 P: 16 DC: 154 QRS: 6 QRSD: 92 T: 32 QT: 380 QTc: 415 Interpretive Statements SINUS RHYTHM NORMAL ECG COMPARED TO ECG 12/31/2021 16:56:04 NO SIGNIFICANT CHANGES Electronically Signed On 07-05-2023 12:44:22 [employer] by Louie Sprague M.D.
[2023-07-04 20:40] VITALS: BP 157/81; PULSE 72; RESP 14; TEMP 36.6; O2SAT 100
[2023-07-04 20:47] VITALS: O2SAT 97
[2023-07-04 21:04] LABS: Basophils Absolute Auto 0.1 K/mm3 (0.0-0.1); Basophils Percent Auto 1.3 % (0.2-1.2); Eosinophils Absolute Auto 0.2 K/mm3 (0-0.3); Eosinophils Percent Auto 2.2 % (0-4.4); Hematocrit 48.4 % (42.0-52.0); Hemoglobin 15.7 g/dL (14.0-18.0); Immature Granulocyte Absolute 0.03 K/mm3 (0.00-0.031); Immature Granulocyte Percent A 0.4 % (0-0.5); Lymphocytes Absolute Auto 2.59 K/mm3 (0.9-3.2); Lymphocytes Percent Auto 32.9 % (18.3-44.2); Mean Corpuscular HGB Conc 32.4 g/dl (32-36); Mean Corpuscular Hemoglobin 31.1 pg (26-34); Mean Corpuscular Volume 95.8 fl (80-100); Monocytes Absolute Auto 0.7 K/mm3 (0.1-0.6); Monocytes Percent Auto 9.3 % (2.6-8.5); Neutrophils Absolute Auto 4.3 K/mm3 (1.3-6.7); Neutrophils Percent Auto 53.9 % (45.5-73.1); Platelet Count Result 246 k/mm3 (150-375); Red Blood Count 5.05 M/mm3 (4.6-6.20); Red Cell Distribution Width 14.5 % (11.5-14.5); White Blood Count 7.9 K/mm3 (4.5-10.0)
[2023-07-04 21:16] LABS: Alanine Aminotransferase 29 U/L (6-50); Albumin Level 4.6 g/dL (3.5-5.1); Alkaline Phosphatase 75 U/L (38-126); Anion Gap 10 mmol/L (8-16); Aspartate Amino Transferase 27 U/L (17-59); Bilirubin,Total 0.7 mg/dL (0.2-1.3); Blood Urea Nitrogen 14 mg/dL (9-20); Calcium 9.5 mg/dL (8.4-10.2); Carbon Dioxide 25 mmol/L (22-30); Chloride 104 mmol/L (98-107); Estimated CRCL calculation 78 ml/min; Estimated Glomerular Filt Rate > 60; Glucose 133 mg/dL (65-110); Lipase 200 U/L (23-300); Potassium 4.1 mmol/L (3.4-5.0); Sodium 139 mmol/L (137-145)
[2023-07-04 21:24] LABS: INR 1.1; Prothrombin Time 14.3 Seconds (11.1-14.7)
[2023-07-04 21:28] LABS: Troponin I 0.023 ng/mL (0.000-0.034)
--- NOTE | 2023-07-04 22:07 | ED.CHESTPAIN ---
HPI - Chest Pain General Chief Complaint: Chest Pain Stated Complaint: I'm here to get my heart and leg checked out. Time Seen by Provider: 07/04/23 21:42 History of Present Illness HPI narrative: This is 8th 57-year-old male, with history of provoked DVT PE, who presents to the emergency department complaining of left leg pain for the past week. The patient describes the pain as sore and tugging. It worsened in the past day with heavy lifting. Given his history of DVT and was concerned sought evaluation. He also notes he had some left chest wall soreness after sleeping on a recliner. He attributes this to pressure on the skin from the structure of his chair. He has no other complaints at this time. Related Data Home Medications Medication Instructions Recorded Confirmed levothyroxine 25 mcg tablet 25 mcg PO QAM 12/26/19 03/08/21 Allergies Allergy/AdvReac Type Severity Reaction Status Date / Time No Known Allergies Allergy Mild Verified 07/04/23 20:49 Review of Systems Review of Systems: CONSTITUTIONAL: Denies fever, chills, or sweats. CARDIOVASCULAR: Left chest wall pain Denies other chest pain, palpitations, or edema. RESPIRATORY: Denies cough or dyspnea. GASTROINTESTINAL: Denies abdominal pain, nausea, vomiting, or diarrhea. GENITOURINARY: Denies dysuria or hematuria. SKIN: Denies rash or itching. MUSCULOSKELETAL: Left posterior knee pain Denies back pain, or myalgia. NEUROLOGIC: Denies headache, numbness, dizziness, or weakness. PSYCHIATRIC: Denies anxiety or depression. [facility] Past Medical History Medical History Cervical strain Colon polyps Hypothyroidism Surgical History Surgical History History of repair of right rotator cuff (~10/2019) History of tonsillectomy Family History Family History Mother Venous thromboembolism Father Carcinoma of colon Grandparent Carcinoma of colon Social History Social History Social History: Patient lives in [place] with his . They have 1 son. 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 He designates his , Whit, is his surrogate decision maker and he wishes to be a full code. Spiritual care concerns: No Exam Narrative: GENERAL: Well-developed, well-nourished, and in no acute distress. HEAD: Normocephalic, atraumatic. EYES: PERRLA and EOMI. CHEST: Clear to auscultation. No respiratory distress. No wheezes rales or rhonchi. Mild tenderness to palpation over the left chest wall and flank without ecchymosis, erythema or induration HEART: Regular rate and rhythm. No murmur heard. Normal peripheral pulses. ABDOMEN: Soft, nontender, nondistended, normal active bowel sounds. EXTREMITIES: Normal range of motion. No edema. SKIN: Warm, dry, no rash. NEURO: Alert and oriented x3. No focal deficit. Moving all 4 limbs spontaneously PSYCH: Normal mood and affect. Course Course Emergency Course: 22:25 - EKG not concerning for ischemia. Troponin negative. Heart score 3. I do not suspect ACS. I suspect the patient's chest pain is related to contusion. Bedside ultrasound performed by me is not concerning for DVT. The patient's common femoral, deep femoral and superficial femoral veins are collapsible. The peroneal vein is collapsible. D-dimer negative. I suspect the patient's knee pain is related to musculoskeletal strain Will discharge with recommendation for primary care follow-up. Discussed return and emergency precautions including signs/symptoms of ACS and respiratory distress. The patient voiced understanding and is comfortable with the plan. All questions answered to his satisfaction. Vital Signs Vital signs: Vital Signs Temperature 97.8 F 07/04/23 20:40 Pul
[2023-07-04 22:21] LABS: D Dimer < 0.27 ug/mL (<0.48)
[2023-07-04 22:40] VITALS: BP 143/81; PULSE 78; RESP 17; O2SAT 99
== END 2023-07-04 22:40 | disposition home or self-care (01) ==
PROVIDERS: Emergency Provider Preventive Medicine Aerospace Medicine
DX: S86.912A Strain of unspecified muscle(s) and tendon(s) at lower leg level, left leg, initial encounter (principal); M94.0 Chondrocostal junction syndrome [Tietze]; E03.9 Hypothyroidism, unspecified; Z86.010 Personal history of colon polyps; X50.0XXA Overexertion from strenuous movement or load, initial encounter
CPT/HCPCS: 36415; 80053; 83690; 84484; 85025; 85380; 85610; 85730; 93005; 99284

== ENCOUNTER → 2023-07-09 14:03 | Outpatient (CLI) | payer BC, SELFPAY ==
--- NOTE | ~2023-07-09 | MR_ITS ---
EXAMINATION: MR knee LT wo con DATE: 07/09/2023 14:42 INDICATION: Left knee pain TECHNIQUE: Magnetic resonance imaging (MRI) of the left knee was performed without intravenous contra st. Sequences included coronal PD-weighted FSE, coronal PD-weighted FS FSE, sagittal T2-weighted FSE , sagittal PD-weighted FS FSE and axial PD weighted fat saturated FSE. COMPARISON: None. FINDINGS: Medial compartment: Small region of increased signal along the inner free edge and inferior articular surface of the body and posterior horn of the medial meniscus consistent with tear, likely complex. There is chondral ul ceration, shallow along the anterior weightbearing medial femoral condyle and deep without degenerati ve subchondral changes at the junction of the central to posterior weightbearing medial femoral condy le. Cartilage along the medial tibial plateau is relatively preserved. Lateral compartment: Lateral meniscus is normal. Mild partial-thickness cartilage loss with smooth chondral surface along the lateral margin of the posterior weightbearing lateral femoral condyle. Remaining cartilage the la teral compartment appears normal. Patellofemoral compartment: Partial-thickness chondral ulceration with regions of deep chondral fissuring with mild underlying mora barticular cystlike change and edema-like signal change at the medial and lateral patellar facets and intervening apical ridge. Deep chondral ulceration with mild underlying cortical irregularity and mi nimal edema-like signal change at the inferior half of the lateral trochlea and trochlear groove. Ligaments and tendons: Anterior and posterior cruciate ligaments are normal. The medial collateral ligament and fibular leticia ateral ligament complex are normal. Small enthesophytes at the patellar insertions of the distal quad riceps and proximal patellar tendons which otherwise normal. The visualized medial and lateral hamstr ing tendons as well as the iliotibial band are normal. Fluid: Moderate-sized knee joint effusion with mild synovitis at the suprapatellar pouch. There is additiona l mild synovitis along the posterior aspect of Hoffa's fat pad. No loose osteochondral bodies identif ied. Osseous/other: Bone alignment is normal. No fracture or pathologic marrow replacing process. IMPRESSION: 1. Complex tear at the body and posterior horn of the medial meniscus. 2. 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 3. Mild osteoarthritis with moderate grade chondromalacia in the medial compartment. 4. Moderate-sized left knee joint effusion. Reviewed, dictated and finalized at location A. ISION ESTIMATOR IMPRESSION: 1. Complex tear at the body and posterior horn of the medial meniscus. 2. Mild to moderate patellofemoral osteoarthritis with high-grade chondromalaci a at the patella, trochlea groove and lateral trochlea. 3. Mild osteoarthritis with moderate grade chondromalacia in the medial compart ment. 4. Moderate-sized left knee joint effusion.
== END ==
PROVIDERS: PCP Family Medicine; Visit Provider Nurse Practitioner
DX: M25.462 Effusion, left knee (principal); M17.12 Unilateral primary osteoarthritis, left knee; S83.232A Complex tear of medial meniscus, current injury, left knee, initial encounter; X58.XXXA Exposure to other specified factors, initial encounter
CPT/HCPCS: 73721